=== PATIENT | male | born 1950 | race Caucasian/White ===

== ENCOUNTER 2021-06-18 09:23 | Outpatient (CLI) | payer MEDICARE, OTHER ==
[~2021-06-18 09:23] MED LIST: ALLO100T PO; AMI25T PO; AMIT25TA9 PO; AMLO1TAB PO; AMOX-422 PO; CIME800T PO; DIAZ10TA2 PO; DIAZ5TAB22 PO; ENOX40SY7; FENT1PAT7 TD; INDO75CA PO; NORCO10T PO; PRED1TAB PO; THIA100T70 PO
== END 2021-06-18 23:59 | disposition home or self-care (01) ==
LOC: RAD 09:23
PROVIDERS: ATTEND Nurse Practitioner Family
DX: H53.8 Other visual disturbances (principal); R41.3 Other amnesia
CPT/HCPCS: 95816